=== PATIENT | female | born 1985 | race Caucasian/White ===

== ENCOUNTER 2018-09-15 06:31 | Observation (INO) ==
--- NOTE | 2018-09-13 11:06 | Anesthesiology Consultation ---
Date of Service September 13, 2018 Assessment & Plan (1) Encounter for pre-operative examination: - Check test AM DOS - Per RN phone interview, patient was advised to follow prescriber's instructions regarding perioperatively Subutex management (hx opioid dependence) Chart Review Chart Review: Acceptable Risk for Surgery and Patient NOT seen in Pre Admission Testing History Surgery Operation Date: 09/15/18 08:00 Proposed Procedures p Cardio VT Mapping with Anesthesia - Ariana Ames DO Height/Weight Height: 5 ft 3 in Weight: 92.986 kg Allergies Allergy/AdvReac Type Severity Reaction Status Date / Time No Known Allergies Verified 09/07/18 13:08 Medications Home Medications Medication Instructions Recorded Confirmed Last Taken Subutex 8 mg PO UD 09/07/18 Unknown flaxseed oil 1,000 mg PO DAILY 09/07/18 09/07/18 Unknown garlic 500 mg PO QAM 09/07/18 09/07/18 Unknown metoprolol succinate 50 mg PO QAM 09/07/18 09/07/18 Unknown Past Medical History Medical History Anxiety Obesity Opioid dependence ON SUBUTEX PVCs (premature ventricular contractions) FREQUENT Past Surgical History Surgical History History of section X2 Social History Smoking Status: Current every day smoker tobacco type: cigarettes Smoking cigarettes per day: 7-10 CIGARETTES PER DAY Do You Dip or Chew Tobacco: No Hx Alcohol Use: No Alcohol Intake Frequency Comment: 0 Hx Substance Use: No substance use type: does not use Testing Electrocardiogram Date: 08/16/18 SR with sinus arrhythmia with occasional PVC's at 74bpm. Possible LAE. Rightward axis. NS TWA. Echocardiogram Date: 10/30/17 LVEF 55%. No RWMA. Sinus rhythm with frequent PVC's. Mild MR. Other Testing 24 hour holter report= 08/16/18= Dominant rhythm sinus rhythm, average rate 67 beats per minute. PACs occasional, 100 with 10 couplets. PVCs very frequent, 34,060 and 327 couplets representing 29% of all QRS complexes. Symptoms none reported. No pauses or Liam arrhythmias observed Laboratory Results 09/03/18 WBC 8.04 H/H 13.7/38.5 PLATELETS 247 SODIUM 141 POTASSIUM 4.0 CHLORIDE 107 CO2 24 BUN 13 CREATININE 0.8 GLUCOSE 94
[~2018-09-15 06:31] MED LIST: LR 15ML/HR IV SCH
[2018-09-15] MEDS ORDERED: ePHEDrine sulfate 50 MG/ML AMP IV PRN (07:07)
[2018-09-15] MEDS ORDERED: HYDROmorphone INJ 2 MG/ML SYR/VIAL IV PRN (07:07)
[2018-09-15] MEDS ORDERED: PROMETHAZINE HCL 12.5 MG in SODIUM CHLORIDE 0.9% 50 ML IV PRN (07:07)
[2018-09-15] MEDS ORDERED: fentaNYL citrate 100 MCG/2 ML VIAL IV PRN (07:07)
[2018-09-15] MEDS ORDERED: ATROPINE SULFATE 0.1 MG/ML 10ML SYR IV PRN (07:07)
[2018-09-15] MEDS ORDERED: ONDANSETRON INJ 2 MG/ML 2 ML VIAL IV PRN (07:07)
[2018-09-15] MEDS ORDERED: KETAMINE HCL INJ 50 MG/ML 10 ML VIAL ONE ×2 (07:28→11:13)
[2018-09-15] MEDS ORDERED: MIDAZOLAM HCL 1 MG/ML 2ML VIAL ONE (07:28)
[2018-09-15] MEDS ORDERED: fentaNYL citrate 100 MCG/2 ML VIAL ONE ×2 (07:28→10:53)
--- NOTE | 2018-09-15 07:48 | History & Physical Bridge Note ---
Date of Service September 15, 2018 History & Physical Bridge Note I have examined the patient, reviewed the History & Physical and in the interval since the performance of the History & Physical I have noted the following changes of clinical significance: no changes noted
[2018-09-15 07:53] LABS: Pregnancy Test, Serum Negative (Negative)
[2018-09-15] MEDS ORDERED: PROPOFOL IV EMULSION 10 MG/ML 20 ML VIAL IV ONE ×5 (08:24→12:06)
[2018-09-15] MEDS ORDERED: ONDANSETRON INJ 2 MG/ML 2 ML VIAL ONE (08:24)
[2018-09-15] MEDS ORDERED: DEXAMETHASONE SOD INJ 4 MG/ML VIAL ONE (08:24)
[2018-09-15] MEDS ORDERED: HEPARIN SOD (PORCINE) 1000 UNIT/ML 10 ML VIAL ONE (08:26)
[2018-09-15] MEDS ORDERED: ACETAMINOPHEN 325 MG TAB PO PRN (12:12)
[2018-09-15] MEDS ORDERED: IBUPROFEN 600 MG TAB PO PRN (12:12)
--- NOTE | 2018-09-15 12:17 | Operative Report ---
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 Any exceptions are noted below.
--- NOTE | 2018-09-15 12:25 | Discharge Summary ---
Date of Service September 15, 2018 Admission HPI Pt admitted for elective EPS with possible PVC ablation due to frequent symptomatic PVCs. 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 s/p partially successful ablation Discharge Exam aaox3, NAD NC/AT, EOMI Supple No JVD Nrl S1/S2, No murmur, occasional PVC CTA b/l no w/r/r soft nt/nd no LE edema b/l skin intact no focal deficits right groin soft and tender Discharge Data Allergies Allergy/AdvReac Type Severity Reaction Status Date / Time No Known Allergies Verified 09/15/18 06:51 Procedures Performed Operation Date: 09/15/18 08:00 Actual Procedures p EPS + Ablation +3D Map for VT - Ariana Ames DO Ordered Studies 09/15/18 06:45 EP Lab Images for PACS ONCE Hospital Course (1) PVC (premature ventricular contraction): Total Time Total Time Spent Total Time Spent (In Minutes): 30 Total Time Includes: Examination of the Patient, Discharge Planning, Medication Reconciliation and Other Discharge Plan Discharge Items Patient Disposition: Home - Self-Care Reason For Visit: PVC ABLATION Discharge Diagnosis: PVC Condition: Good Discharge Goals: Improve function Activity: As commented below Activity Comment: No heavy lifting or squatting for 1 week Lifting: No more than 10 pounds Bathing: No limitations Sexual Activity: After one week Driving/Machine Use: Resume 1 day after discharge Non-emergency contact: Senior Accountant Cpa Call non-emergency contact if: you have any medication questions Follow-up/Referrals: PCP,NO [Primary Care Provider] - Diet: Regular Addtl Provider Instructions: none Prescriptions: Continued flaxseed oil 1,000 mg Capsule 1,000 mg PO DAILY RF: 0 garlic 500 mg Capsule 500 mg PO QAM RF: 0 Subutex 8 mg PO UD RF: 0 Discontinued metoprolol succinate 50 mg Capsule,Sprinkle,Er 24hr 50 mg PO QAM RF: 0 Stand-Alone Forms: [facility] Discharge Orders: Discharge Order (Routine); Ordered 09/16/18 Ordered By: Ariana Ames Admission Data Admit Date/Time: 09/15/18 11:48 Attending Provider: Ariana Ames Admit Provider: Ariana Ames Primary Care Provider: PCP,RAINA Service: Telemetry
--- NOTE | 2018-09-15 15:15 | Anesthesiology Progress Note ---
Date of Service September 15, 2018 Anesthesia Post Procedure Vital Signs Vital Signs: Temp Pulse Resp BP Pulse Ox 09/15/18 14:27 36.8 C 62 16 127/74 96 09/15/18 13:57 36.8 C 51 L 18 122/72 96 09/15/18 13:27 36.8 C 84 18 130/77 98 09/15/18 12:57 36.8 C 82 18 132/74 97 09/15/18 12:27 36.8 C 75 18 130/75 97 09/15/18 12:12 36.8 C 81 16 128/74 98 09/15/18 06:40 37.2 C 63 16 142/73 H 99 Notes Mental Status: alert / awake / arousable and participated in evaluation Nausea / Vomiting: adequately controlled Pain: adequately controlled Airway Patency, RR, SpO2: stable & adequate BP & HR: stable & adequate Hydration State: stable & adequate Anesthetic Complications: no major complications apparent and Pt Satisfied with anesthetic care
[2018-09-16 07:37] VITALS: TEMP 98.1; O2SAT 96
--- NOTE | 2018-09-16 07:57 | Anesthesiology Progress Note ---
Date of Service September 16, 2018 Anesthesia Post Procedure Vital Signs Vital Signs: Temp Pulse Pulse Resp BP BP Pulse Ox 09/16/18 07:34 36.7 C 47 L 16 122/58 L 96 09/16/18 03:44 36.8 C 59 L 16 123/70 95 09/16/18 00:00 37.1 C 58 L 16 129/74 96 09/15/18 19:03 36.8 C 75 16 124/79 95 09/15/18 16:00 66 09/15/18 15:14 36.4 C L 60 18 131/73 95 09/15/18 14:27 36.8 C 62 16 127/74 96 09/15/18 13:57 36.8 C 51 L 18 122/72 96 09/15/18 13:27 36.8 C 84 18 130/77 98 09/15/18 12:57 36.8 C 82 18 132/74 97 09/15/18 12:27 36.8 C 75 18 130/75 97 09/15/18 12:12 36.8 C 81 16 128/74 98 Notes Mental Status: alert / awake / arousable and participated in evaluation Nausea / Vomiting: adequately controlled Pain: adequately controlled Airway Patency, RR, SpO2: stable & adequate BP & HR: stable & adequate Hydration State: stable & adequate
[2018-09-16] MEDS ORDERED: BUPRENORPHINE HCL 8 MG SUBL PO SCH (09:00)
[2018-09-16] MEDS ORDERED: NON-FORMULARY MEDICATION (Garlic 500 MG) PO SCH (09:00)
[2018-09-16] MEDS ORDERED: NON-FORMULARY MEDICATION (Flaxseed Oil 1,000 MG) PO SCH (09:00)
[2018-09-16 09:31] VITALS: BP 127/74; PULSE 81
--- NOTE | 2018-09-17 07:44 | Operative Report ---
Post Operative Report Pre & Post Diagnosis Operation Date: 09/15/18 08:00 <No data on this case meets the specified criteria> Procedure Operation Date: 09/15/18 08:00 Actual Procedures p EPS + Ablation +3D Map for VT - Ariana Ames DO s Ultrasound Vascular Access - Ariana Ames DO Surgeon Ariana Ames, Dumpcart Driver none Estimated Blood Loss 5 I attest to the content of the Intraoperative Record and any orders documented therein. Any exceptions are noted below.
--- NOTE | 2018-09-21 04:11 | Operative Report ---
DATE OF OPERATION: 09/15/2018 PREOPERATIVE DIAGNOSES: Palpitations and frequent premature ventricular contractions. POSTOPERATIVE DIAGNOSES: Palpitations and frequent premature ventricular contractions and premature ventricular contractions originating from the posterolateral region of the right ventricular outflow tract. PROCEDURE: EP study PVCs, radiofrequency ablation, 3D mapping of PVCs in the right ventricular outflow tract. SURGEON: Ariana Ames DO. INFORMATION TECHNOLOGY ACCOUNT MANAGER: None. ANESTHESIA: Monitored anesthetic care was given via anesthesiology. She got a total of 2 mg of Versed, 200 mcg of fentanyl, 800 mg of propofol, 75 mg of ketamine, 4 mg of Zofran and 4 mg of Decadron. BLOOD LOSS: Less than 5 mL URINE OUTPUT: Not applicable. SPECIMENS: None. FINDINGS: See below. DRAINS: None. IV FLUIDS: 1100 mL. INDICATIONS: This is a 33-year-old female with past medical history for frequent PVCs, palpitations, remote prior substance abuse and still remains on Subutex and chronic tobacco use. Due to the frequency [place] PV[place] [id number] on 24-hour Holter monitor 29% of the QRS complexes and her symptoms of palpitations despite high dose beta primo she was recommended EP study with possible PVC ablation. CONSENT: Consent was obtained prior to the patient going into electrophysiology lab. The patient was informed of the risks, benefits and alternatives of the procedure. Risks include but not limited to sudden cardiac , cardiac arrhythmias, cerebrovascular accident, myocardial infarction, injury to the blood vessels, chamber of the heart, the chemehuevi electrical system where she would need a permanent pacemaker, bleeding and infection. The patient understood these risks and agreed to the procedure as planned. Informed consent was obtained. DESCRIPTION OF THE PROCEDURE: The patient was brought into the electrophysiology lab in a fasting state. She was connected to a continuous monitoring and evaluation advisor. A timeout was performed to ensure patient's identity and procedure correctly. The patient was prepped and draped over the bilateral groins in normal surgical standard fashion. Monitored conscious sedation was given throughout the procedure for patient's comfort level. [place] precautions were maintained throughout the procedure. 10 mL of 1% lidocaine, bupivacaine mixture were given in the left femoral vein to the right groin. Using the modified Seldinger technique, venous access was obtained within the right femoral vein without any problem. An 8-Uzbek sheath was then inserted with guidewire without any resistance. The guidewire and dilator removed. Then the PentaRay Biosense catheter DF curve was advanced up into the heart and we did 3D mapping of the PVCs coming from the right ventricular outflow tract with the PentaRay and then removed the PentaRay and inserted the ablation catheter. The Biosense ThermoCool DF curved 4 mm ablation catheter and further continued to do 3D mapping of the PVCs in the right ventricular outflow tract. There seemed to be a ridge right along where they were coming from and this posterolateral region of the right ventricular outflow tract. On one side of this ridge more lateral, I was getting at least QRS is on time if not, maybe about 10 milliseconds early. My pace maps were about low 90s to mid 90% match and the my unipolar sometimes had a R-wave and not a QS but I started giving a series of العلي at 25 ewing more on this lateral portion of the ridge. Then I moved to more the septal portion of the ridge where the unipolar was a little bit better with the QS and I was still about negative, maybe a little bit more -20 to 25 pre-QRS and again my pace maps were anywhere from 90-95%. I gave a series of العلي around the septal region of this ridge. I increased the wattage even to 30 ewing and I gave a good amount of what I consider a good amount of radiofrequency ablations within this region all along with ridge never completely having 100% complete suppression of the PVCs, but it did seem a little bit less frequent. There was at one point she ended up briefly going into an atrial tachycardia with a rate related left bundle. Interestingly, she did not have any PVCs with this tachycardia. The rate was 612 milliseconds (98 beats per minute). I did do some burst pacing to entrain this and she did go back into it a few times but eventually it all resolved and she was back to her chemehuevi normal sinus rate and beats without any bundle and her PVCs again were still present but not as much. It was at this point that I continued on with electrophysiology study in the following findings: The WI interval 134 milliseconds, QRS 92 milliseconds, QT 376 milliseconds. The sinus cycle length was 778 milliseconds, the AH was 58 milliseconds, HV was 38 milliseconds, the AV Wenckebach was 310 milliseconds. Of note, when I was burst pacing, the atrium with defined AV Wenckebach there were points where I did see a rate related bundle. With atrial extrastimuli, the AV node ERP was less than or equal to the atrium. The atrial ERP was 600/220 and less than or equal to 400/200. The right ventricular ERP was 400/200. Of note, I swapped to do the EP study. I swapped out the ablation catheter for a No quadripolar catheter and initially placed it within the high right atrium and then placed it over his bundle region and then finally on the right ventricular apex. The catheters were then all removed from the body and manual compression was used to establish hemostasis with pulling of the 9-Uzbek sheath. IMPRESSION: 1. Unifocal frequent premature ventricular complexes stemming from the posterolateral region of the right ventricular outflow tract along this ridge, status post partially successful with slight suppression of the premature ventricular contractions radiofrequency ablations. 2. Normal atrioventricular jd pathology PLAN: Monitor patient overnight. I would stop her metoprolol. No heavy lifting or squatting for a week. We will see how she does within the 1 month followup. If she is really symptomatic we will consider flecainide, if she is not then maybe we would repeat a Holter at some juncture just to see if we suppressed the PVCs to least a decent amount. We would still monitor, echos on a yearly basis to ensure that her EF is normal. I attest to the content of the Intraoperative Record and any orders documented therein. Any exception s are noted below.
== END 2018-09-16 10:31 | disposition home or self-care (01) ==
LOC: 2S 06:31 → ASU 06:31